=== PATIENT | male | born 1965 | race Caucasian/White ===

== ENCOUNTER → 2018-02-09 | Outpatient (CLI) | payer BC ==
--- NOTE | 2018-02-09 11:50 | XR ---
EXAMINATION TYPE: XR toes RT DATE OF EXAM: 02/09/2018 COMPARISON: NONE HISTORY: Pain TECHNIQUE: 2 views submitted FINDINGS: There is hypertrophic change and complete loss of joint space of the first MTP joint. No erosive changes. No acute fracture or dislocation. IMPRESSION: 1. Severe arthropathy first MTP joint.
== END | disposition home or self-care (01) ==
LOC: RADXRYALE 11:24
PROVIDERS: ATTEND Physician Assistant Medical
DX: M12.871 Other specific arthropathies, not elsewhere classified, right ankle and foot (principal)

== ENCOUNTER 2018-05-15 07:46 | Day surgery (SDC) | payer BC ==
[2018-05-11 08:36] VITALS: BMI 26.6
[~2018-05-15 07:46] MED LIST: LACTATED RINGERS 1,000 ML IV SCH
[2018-05-15 08:30] VITALS: RESP 16; TEMP 97.4
[2018-05-15] MEDS ORDERED: LIDOCAINE 1% 20 ML VIAL (10MG/ML) FOR IV START INTRADERMA ONE (08:30)
[2018-05-15] MEDS ORDERED: PROPOFOL 10 MG/ML 20 ML VIAL IV ONE (09:13)
--- NOTE | 2018-05-15 09:43 | P.PCN ---
Date of Procedure: 05/15/18 Procedure(s) Performed: Procedure: Total colonoscopy. Preoperative diagnosis: Exam within normal limits. Preparation: HalfLytely prep. Sedation: Was provided by anesthesia. Brief clinical history: The patient is a 53-year-old male who is scheduled for this evaluation for screening for neoplasia age being his risk factor. There is no family history of colon cancer. He has no abdominal complaints, bleeding or anemia. This would be his first colonoscopy. Procedure: With the patient on his left lateral decubitus position and after informed consent and adequate sedation, the perianal area was inspected and it did not show any fissures or fistulas. There were no masses felt on digital rectal examination. The Olympus CFQ 160L video colonoscope was then inserted in the rectum in the usual fashion and advanced to the cecum. The mucosa appeared healthy. No polyps or tumors were seen or any obvious diverticular disease or other pathology. I retroflexed the endoscope in the rectum before the endoscope was withdrawn. The patient tolerated the procedure well. Plan: The patient was reassured. He will follow up with you as planned. I recommended repeat exam in 10 years.
[2018-05-15 09:55] VITALS: BP 115/69; PULSE 54
== END 2018-05-15 10:19 | disposition home or self-care (01) ==
LOC: ORWHC2ENDO 07:46
DX: Z12.11 Encounter for screening for malignant neoplasm of colon (principal); E78.5 Hyperlipidemia, unspecified; G25.81 Restless legs syndrome; Z79.899 Other long term (current) drug therapy; Z87.442 Personal history of urinary calculi
CPT/HCPCS: 45378; J2704